=== PATIENT | male | born 1980 | race Two or more races ===

== ENCOUNTER 2017-03-19 21:58 | Emergency (ER) | payer SELFPAY ==
[~2017-03-19] VITALS: Ht 185.4 cm; Wt 100.2 kg
[~2017-03-19 21:58] MED LIST: CEPH500T PO; HYDR-971 PO; ONDA4TAB12 PO; SULF1TAB24 PO
[2017-03-19] MEDS ORDERED: diphenhydrAMINE 50 MG/ML VIAL IVP ONE (23:00)
[2017-03-19] MEDS ORDERED: IV NORMAL SALINE 1000ML BAG 1,000 ML IV ONE (23:00)
[2017-03-19 23:34] LABS: BASO # 0.1 x10^3/uL (0.0-0.2); BASO % 1 % (0-3); EOS % 4 % (0-3); HEMATOCRIT 45.1 % (39.0-53.0); HEMOGLOBIN 15.3 g/dL (13.0-17.5); LYMPH # 2.2 x10^3/uL (1.0-4.8); LYMPH % 22 % (24-48); MEAN CORPUSCULAR HEMOGLOBIN 30 pg (25-35); MEAN CORPUSCULAR HGB CONC 34 g/dL (31-37); MEAN CORPUSCULAR VOLUME 88 fL (79-100); MONO % 7 % (0-9); NEUT % 67 % (31-73); PLATELET COUNT 196 x10^3/uL (140-400); RED BLOOD COUNT 5.13 x10^6/uL (4.30-5.70); RED CELL DISTRIBUTION WIDTH 13.1 % (11.5-14.5); WHITE BLOOD COUNT 10.3 x10^3/uL (4.0-11.0)
[2017-03-19 23:45] LABS: CALCIUM 9.6 mg/dL (8.5-10.1); CREATININE 1.1 mg/dL (0.7-1.3); GFR 76.2; POTASSIUM 3.7 mmol/L (3.5-5.1)
[2017-03-19 23:50] LABS: BILIRUBIN,URINE NEGATIVE (NEG); GLUCOSE,URINE NEGATIVE (NEG); NITRITE,URINE NEGATIVE (NEG); PH,URINE 7.5; PROTEIN,URINE NEGATIVE (NEG-TRACE); UROBILINOGEN,URINE 0.2 mg/dL (0.2 mg/dL)
[2017-03-19 23:51] LABS: TOTAL BILIRUBIN 0.3 mg/dL (0.2-1.0)
[2017-03-19 23:58] LABS: BACTERIA,URINE 0 /HPF (0-FEW); RBC,URINE 0 /HPF (0-2); WBC,URINE 0 /HPF (0-4)
[2017-03-20 01:00] VITALS: BP 151/81
--- NOTE | 2017-03-20 01:19 | PHYS DOC ---
Past Medical History Past Medical History: Other Additional Past Medical Histor: PTSD Past Surgical History: No Surgical History Additional Past Surgical Histo: right arm surgeries. Alcohol Use: Occasionally Drug Use: Marijuana Social History Narrative: MARIJUANA USE YESTERDAY Adult General Chief Complaint Chief Complaint: ANXIETY/PANIC ATTACK HPI HPI Patient is a 36 year old gentleman who presents here today secondary to an anxiety attack. Patient reports he just feels overwhelmed don't know what came over him. Patient reports he is feeling like himself. Patient is a history significant for anxiety Pentax and PTSD in the past. Patient reports 3 years ago he Bhavna Achilles been having PTSD since. Patient denies any history of hypertension diabetes liver longer kidney pals. Patient has no abdominal surgeries in the past. Patient does not smoke drink or do any drugs. Patient reports that he did use marijuana yesterday. Patient has any fevers shakes chills nausea vomiting diarrhea. Patient has any cough cold runny nose. Patient has any URI symptoms. Patient has any chest pain or abdominal pain. Patient reports he is otherwise asymptomatic however he is not sure why he can't stop crying. Since reports that she got the shower and he was doing great before she went in and she cannot he was crying and uncontrollable. reports that today they had normal excellent day and she is not sure why he is Patient's physical exam is unremarkable. Patient's alert awake oriented 3. Cranial nerves II-12 are intact. Motor 5 out of 5 upper or lower 70s. Patient's heart lung abdominal exams are all normal. Patient's psychiatric exam reveals very tearful desponded individual. Patient denies any suicidal or homicidal ideation. Patient comes in and is crying and sobbing and unable to stop. Patient's ER workup has been unremarkable. Patient's CBC and chemistry of all normal. We have asked the psychiatric assessment team to come and evaluate the patient and assist with his mental health. Patient was agreement with the PAT team coming and seeing him. A/P: #1 patient is tearful in the ER with unclear etiology. Patient has a history of anxiety panic attacks in the past. The psychiatric assessment team has come to evaluate him and they feel that he is stable and safe to go home. Patient does have a plan. Patient does have a psychiatrist that he trusts and will see and make an appointment with tomorrow. Family is in agreement with this plan. Patient was discharged home in stable condition. Review of Systems Review of Systems Constitutional: Denies fever or chills [] Eyes: Denies change in visual acuity, redness, or eye pain [] HENT: Denies nasal congestion or sore throat [] All other review systems are negative except as documented in the history of present illness portion. Current Medications Current Medications Current Medications Medications (Trade) Dose Ordered Sig/Britt Start Time Stop Time Status Last Admin Dose Admin Diphenhydramine HCl (Benadryl) 25 mg 1X ONCE 03/19/17 23:00 03/19/17 23:01 DC 03/19/17 23:35 25 MG Lorazepam (Ativan) 1 mg 1X ONCE 03/19/17 23:00 03/19/17 23:01 DC 03/19/17 23:35 1 MG Sodium Chloride 1,000 ml @ 1,000 mls/hr 1X ONCE 03/19/17 23:00 03/19/17 23:59 DC 03/19/17 23:00 1,000 MLS/HR Allergies Allergies Allergies Coded Allergies Type Severity Reaction Last Updated Verified Penicillins Allergy Intermediate 06/03/16 Yes Physical Exam Physical Exam Constitutional: Well developed, well nourished, no acute distress, non-toxic appearance. [] HENT: Normocephalic, atraumatic, bilateral external ears normal, oropharynx moist, no oral exudates, nose normal. [] Eyes: PERRLA, EOMI, conjunctiva normal, no discharge. [] Neck: Normal range of motion, no tenderness, supple, no stridor. [] Cardiovascular:Heart rate regular rhythm, no murmur [] Lungs & Thorax: Bilateral breath sounds clear to auscultation [] Abdomen: Bowel sounds normal, soft, no tenderness, no masses, no pulsatile masses. [] Skin: Warm, dry, no erythema, no rash. [] Back: No tenderness, no CVA tenderness. [] Extremities: No tenderness, no cyanosis, no clubbing, ROM intact, no edema. [] Neurologic: Alert and oriented X 3, normal motor function, normal sensory function, no focal deficits noted. [] Psychologic: Affect tearful Current Patient Data Vital Signs Vital Signs Date Time Temp Pulse Resp B/P (MAP) Pulse Ox O2 Delivery O2 Flow Rate FiO2 03/19/17 22:10 99.0 98 20 146/90 (108) 98 Room Air 99.0 Lab Values Laboratory Tests Test 03/19/17 23:26 03/19/17 23:37 White Blood Count 10.3 x10^3/uL (4.0-11.0) Red Blood Count 5.13 x10^6/uL (4.30-5.70) Hemoglobin 15.3 g/dL (13.0-17.5) Hematocrit 45.1 % (39.0-53.0) Mean Corpuscular Volume 88 fL (79-100) Mean Corpuscular Hemoglobin 30 pg (25-35) Mean Corpuscular Hemoglobin Concent 34 g/dL (31-37) Red Cell Distribution Width 13.1 % (11.5-14.5) Platelet Count 196 x10^3/uL (140-400) Neutrophils (%) (Auto) 67 % (31-73) Lymphocytes (%) (Auto) 22 % (24-48) L Monocytes (%) (Auto) 7 % (0-9) Eosinophils (%) (Auto) 4 % (0-3) H Basophils (%) (Auto) 1 % (0-3) Neutrophils # (Auto) 6.9 x10^3uL (1.8-7.7) Lymphocytes # (Auto) 2.2 x10^3/uL (1.0-4.8) Monocytes # (Auto) 0.7 x10^3/uL (0.0-1.1) Eosinophils # (Auto) 0.4 x10^3/uL (0.0-0.7) Basophils # (Auto) 0.1 x10^3/uL (0.0-0.2) Sodium Level 140 mmol/L (136-145) Potassium Level 3.7 mmol/L (3.5-5.1) Chloride Level 102 mmol/L (98-107) Carbon Dioxide Level 27 mmol/L (21-32) Anion Gap 11 (6-14) Blood Urea Nitrogen 14 mg/dL (8-26) Creatinine 1.1 mg/dL (0.7-1.3) Estimated GFR (Cockcroft-Gault) 76.2 BUN/Creatinine Ratio 13 (6-20) Glucose Level 127 mg/dL (70-99) H Calcium Level 9.6 mg/dL (8.5-10.1) Total Bilirubin 0.3 mg/dL (0.2-1.0) Aspartate Amino Transferase (AST) 19 U/L (15-37) Alanine Aminotransferase (ALT) 32 U/L (16-63) Alkaline Phosphatase 58 U/L (46-116) Total Protein 8.0 g/dL (6.4-8.2) Albumin 4.0 g/dL (3.4-5.0) Albumin/Globulin Ratio 1.0 (1.0-1.7) Ethyl Alcohol Level < 10 mg/dL (0-10) Urine Collection Type Unknown Urine Color Yellow Urine Clarity Clear Urine pH 7.5 Urine Specific [place] 1.010 Urine Protein Negative mg/dL (NEG-TRACE) Urine Glucose (UA) Negative mg/dL (NEG) Urine Ketones (Stick) Negative mg/dL (NEG) Urine Blood Negative (NEG) Urine Nitrite Negative (NEG) Urine Bilirubin Negative (NEG) Urine Urobilinogen Dipstick 0.2 mg/dL (0.2 mg/dL) Urine Leukocyte Esterase Negative (NEG) Urine RBC 0 /HPF (0-2) Urine WBC 0 /HPF (0-4) Urine Squamous Epithelial Cells None /LPF Urine Bacteria 0 /HPF (0-FEW) Laboratory Tests 03/19/17 23:26 Laboratory Tests 03/19/17 23:26 EKG EKG [] Radiology/Procedures Radiology/Procedures [] Course & Med Decision Making Course & Med Decision Making Pertinent Labs and Imaging studies reviewed. (See chart for details) [] Dragon Disclaimer Dragon Disclaimer This electronic medical record was generated, in whole or in part, using a voice recognition dictation system. Departure Departure Impression: Primary Impression: Panic attack Additional Impressions: Tearfulness PTSD (post-traumatic stress disorder) Disposition: 01 HOME, SELF-CARE Condition: STABLE Referrals: INOCENTE DE LEÓN (PCP) Patient Instructions: Anxiety and Panic Attacks Additional Instructions: Please follow up with her psychiatrist tomorrow as discussed with our psychiatric assessment team. Return to the ER for any thoughts about hurting herself or anyone else. Return to the ER if you have any concerns or any symptoms that are uncontrollable or if you need us for any reason. Problem Qualifiers EDUARDO BISHOP MD March 20, 2017 01:19
== END 2017-03-20 01:30 | disposition home or self-care (01) ==
LOC: ER 21:58
DX: F41.0 Panic disorder [episodic paroxysmal anxiety] (principal); F43.10 Post-traumatic stress disorder, unspecified; F12.10 Cannabis abuse, uncomplicated; Z88.0 Allergy status to penicillin
CPT/HCPCS: 36415; 80053; 81001; 85027; 96361; 96374; 96375; 99284; G0480; J1200; J2060; J7030

== ENCOUNTER 2017-03-20 20:20 | Emergency (ER) | payer SELFPAY ==
[~2017-03-20] VITALS: Ht 185.4 cm; Wt 100.2 kg
[2017-03-20 20:35] VITALS: BP 132/85
[2017-03-20] MEDS ORDERED: LORazepam 1 MG TABLET PO ONE (20:45)
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
== END 2017-03-20 22:30 | disposition short-term general hospital (02) ==
LOC: ER 20:20
DX: F41.9 Anxiety disorder, unspecified (principal); F41.0 Panic disorder [episodic paroxysmal anxiety]; F43.10 Post-traumatic stress disorder, unspecified; F12.10 Cannabis abuse, uncomplicated; Z88.0 Allergy status to penicillin
CPT/HCPCS: 99284; 99285

== ENCOUNTER 2019-12-21 21:46 | Emergency (ER) | payer BC ==
[~2019-12-21] VITALS: Ht 185.4 cm; Wt 104.5 kg
[~2019-12-21 21:46] MED LIST changes: +HYDR-3164 PO; -HYDR-971 PO
[2019-12-21 22:21] VITALS: BP 131/80
[2019-12-21] MEDS ORDERED: ACETAMINOPHEN 500 MG TABLET PO ONE (22:30)
[2019-12-21] MEDS ORDERED: IBUPROFEN 200 MG TABLET. PO ONE (22:30)
[2019-12-21 22:42] LABS: INFLUENZA A PATIENT NEGATIVE (NEGATIVE); INFLUENZA B PATIENT NEGATIVE (NEGATIVE)
--- NOTE | 2019-12-21 23:38 | RAD ---
Exam: Chest 2 views INDICATION: Fever, cough TECHNIQUE: Frontal and lateral views the chest Comparisons: None FINDINGS: The cardiomediastinal silhouette and pulmonary vessels are within normal limits. The lung and pleural spaces are clear. IMPRESSION: No acute cardiopulmonary process. Electronically signed by: Candido Brunson MD (12/21/2019 11:35 PM) [id number]
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
== END 2019-12-22 00:09 | disposition home or self-care (01) ==
LOC: ER 21:46
DX: R50.9 Fever, unspecified (principal); R05 Cough; R51 Headache; F43.10 Post-traumatic stress disorder, unspecified; F12.90 Cannabis use, unspecified, uncomplicated; F17.200 Nicotine dependence, unspecified, uncomplicated; Z98.890 Other specified postprocedural states; Z88.0 Allergy status to penicillin
CPT/HCPCS: 71046; 87070; 87804; 87880; 99285